=== PATIENT | male | born 1965 | race Caucasian/White ===

== ENCOUNTER 2018-12-07 06:56 | Emergency (ER) | payer OTHER ==
[~2018-12-07] VITALS: Ht 170.2 cm; Wt 85.5 kg
[2018-12-07 07:01] VITALS: Ht 170.2 cm; Wt 85.5 kg
[2018-12-07] MEDS ORDERED: SOD CHLORIDE 0.9% 500 ML IV ONE (09:00)
[2018-12-07] MEDS ORDERED: DIPHENHYDRAMINE 50 MG INJ IV ONE (09:00)
[2018-12-07] MEDS ORDERED: METOCLOPRAMIDE 10 MG INJ IV ONE (09:00)
[2018-12-07] MEDS ORDERED: KETOROLAC 15 MG INJ IV STA (09:00)
--- NOTE | 2018-12-07 09:09 | ERD ---
ER Documentation Chief Complaint Chief Complaint DIZZINESS SINCA AM, BLOOD PRESSURE HIGH DOESN'T TAKE MEDICATIONS HPI This is a 53-year-old male with no reported past medical history who is presenting for a headache and high blood pressure. The patient endorses a slow onset progressive worsening throbbing left-sided headache with mild photophobia but no phonophobia, no nausea or vomiting, beginning last night. The patient felt generally weak and lightheaded this morning, which was felt to be related to having not eaten yet. However, the patient had his blood pressure checked and was found to be elevated. The patient presents to the emergency department for this. This is not the worst headache of the patient's life. He does not endorse a personal or family history of cerebral aneurysm. He does not endorse any neck stiffness or pain. He has no focal deficits. He does not endorse any blurry or double vision. He does not endorse dizziness. The room is not spinning around him. He has no weakness or numbness or tingling to the face or extremities. He has no coordination issues. The patient denies feeling sick recently. The patient denies fever or chills. The patient does not endorse back pain. The patient has had no chest pain or trouble breathing. The patient denies abdominal pain. The patient denies changes to bowel movements or urination. The patient has had no focal deficits. ROS All systems reviewed and are negative except as per history of present illness. Allergies Allergies: Coded Allergies: No Known Allergy (Unverified , 12/07/18) PMhx/Soc Medical and Surgical Hx: pt denies Medical Hx, pt denies Surgical Hx History of Surgery: No Anesthesia Reaction: No Hx Neurological Disorder: No Hx Respiratory Disorders: No Hx Cardiac Disorders: No Hx Psychiatric Problems: No Hx Miscellaneous Medical Probl: No Hx Alcohol Use: Yes (weekends) Hx Substance Use: No Hx Tobacco Use: No Smoking Status: Never smoker FmHx Family History: No diabetes Physical Exam Vitals Vital Signs Date Temp Pulse Resp B/P (MAP) Pulse Ox O2 O2 Flow FiO2 Time Delivery Rate 12/07/18 49 12 188/104 100 Room Air 08:42 (132) 12/07/18 98.2 74 18 194/123 98 07:01 (146) Physical Exam Const: No apparent distress, well-developed, well-nourished Head: Normocephalic, Atraumatic Eyes: Normal Conjunctiva. Extraocular movements intact. Pupils equal, round and reactive to light ENT: Normal External Ears, Nose and Mouth. Neck: Full range of motion. No meningismus. Resp: Clear to auscultation bilaterally, No wheezes, rales or rhonchi Cardio: Regular rate and rhythm. No murmurs, rubs or gallops Abd: Soft, non tender, non distended. Normal bowel sounds Skin: No petechiae or rashes Back: No midline tenderness. No CVA tenderness Ext: No cyanosis, or edema Neur: Awake and alert, oriented 4. Cranial nerves intact. No facial droop. Normal strength, sensation and coordination. Psych: Normal Mood and Affect Results 24 hrs Current Medications Medications Dose Sig/Grant Start Time Status Last (Trade) Ordered Route PRN Stop Time Admin Dose Reason Admin Sodium 500 ml @ Q1H ONCE 12/07/18 12/07/18 Chloride 500 mls/hr IV 09:00 09:20 12/07/18 09:59 Ketorolac 15 mg ONCE STAT 12/07/18 DC 12/07/18 Tromethamine IV 09:00 09:20 (Toradol) 12/07/18 09:01 10 mg ONCE ONCE 12/07/18 DC 12/07/18 Metoclopramid IV 09:00 09:21 e HCl 12/07/18 09:01 (Reglan) 25 mg ONCE ONCE 12/07/18 DC 12/07/18 Diphenhydrami IV 09:00 09:20 ne HCl 12/07/18 09:01 (Benadryl) Procedures/MDM MDM The patient's presentation warrants further investigation. Previous medical records, if available, were reviewed. EKG EKG read by me: Rate/Rhythm: Sinus bradycardia at 54 bpm Intervals: Normal [place]: Normal Impression: No evidence of acute ischemia. Sinus bradycardia. TREATMENT/DISPOSITION The patient presents with a headache. The patient was treated with IV fluids, Toradol, Reglan and Benadryl with improvement of his headache. Differential diagnosis also includes migraine, tension headache, cluster headache. The patient has no focal deficits. The neurologic exam is reassuring. I have decreased suspicion for cerebral ischemia. There was no trauma or injury. There is no personal or family history of cerebral aneurysm. This is not the worst headache of the patient's life. It was not acutely severe. It is been progressive in nature. I have decreased suspicion for SAH or other ICH. I have low suspicion for temporal arteritis, cavernous venous thrombosis, subdural hematoma, epidural hematoma, meningitis. The patient's headache could be related to undiagnosed high blood pressure. The patient's blood pressure was elevated at greater than 120/80 while in the emergency department. As the patient's headache improved, patient's blood pressure also improved. The patient's blood pressure is not at emergent levels. The patient was otherwise stable with no evidence of hypertensive urgency or emergency. The patient's EKG reveals mild tachycardia, but it is otherwise unremarkable. There is no evidence of cardiac ischemia. The patient does not require admission for blood pressure control. I have discussed with the patient the risks of hypertension. I have instructed the patient to return to the ER for any new or worsening symptoms including chest pain, shortness of breath, headache, blurred vision, confusion, nausea, vomiting or LOC. I have advised the patient to follow up with the primary care physician for outpatient monitoring and treatment for hypertension in 1-3 days. DISCHARGE Upon reevaluation of the patient, symptoms have improved. No emergent diagnoses were identified. At this time, I feel that the patient stable for discharge. The patient was instructed to follow-up with a primary care physician in 1-3 days. The patient will be given strict precautions with which to return to the emergency department. Prescriptions: None DISCLAIMER Inadvertent spelling and grammatical errors are likely due to EHR/dictation software use and do not reflect on the overall quality of patient care. Note that the electronic time recorded on this note does not necessarily reflect the actual time of the patient encounter. Departure Diagnosis: Primary Impression: Headache Headache type: unspecified Headache chronicity pattern: acute headache Intractability: not intractable Qualified Codes: R51 - Headache Additional Impressions: Lightheadedness Elevated blood pressure reading Condition: Stable Patient Instructions: Hypertension, To Be Confirmed, Self-Care for Headaches Additional Instructions: Thank you for for coming to [facility] for your care today. Please ask your nurse or provider if you have questions about your care today and do not leave until all your questions have been answered. Please use any medications given as directed and follow-up with your doctor (or the doctor you were referred to) in the next 1-3 days. If you do not have a primary care doctor you may follow up at [place] [facility] (listed below). You may also use motrin and tylenol as needed for fever and/or pain unless instructed otherwise by your provider or nurse. Indications for more urgent follow-up have been discussed, but you may return to the Emergency Department at ANY time for any worrisome or worsening symptoms. If you have abdominal pain, please know that no test or exam you received is perfect and you should follow up within 8 hours for continued pain. If you had any imaging studies today, such as an X-Ray or CT Scan, these studies will be reviewed later by a radiologist. You will be called if there are i mportant findings that were not identified today, so make sure the contact information you provided at registration is correct. If you received any narcotic pain control medicine today, such as Vicodin, Morphine or Dilaudid, your coordination and judgment may be affected for a number of hours. Please do not drive or operate heavy machinery, and you may want someone to assist you at home. If you were given a prescription for narcotic medication, be aware that it is very addictive- use sparingly and only if necessary. PLEASE SEEK FURTHER EVALUATION AND MANAGEMENT AT YOUR DOCTORS OFFICE WITHIN THE NEXT 1-3 DAYS. IT IS YOUR RESPONSIBILITY TO MAKE AN APPOINTMENT FOR FOLOW-UP CARE. IF YOU HAVE A PRIMARY DOCTOR, PLEASE CALL THEIR OFFICE TO SCHEDULE AN APPOINTMEN T FOR FOLLOW UP. IF YOU DO NOT HAVE A PRIMARY DOCTOR YOU CAN CALL OUR PHYSICIAN REFERRAL HOTLINE AT IF YOU CAN NOT AFFORD TO SEE A PHYSICIAN YOU CAN CHOSE FROM THE FOLLOWING [facility] OR [facility] CLINICS: [facility] [address] [facility] [address] [facility]. [facility] [address] [facility] [address] [facility] [address] [facility] [facility] [facility] [address] [place] [address] [facility] [address] [place] [address] [facility] + [facility] [address] [place] [address] LINDA GARCIA MD Dec 07, 2018 09:09
[2018-12-07 10:34] VITALS: BP 144/96; PULSE 47; RESP 17
== END 2018-12-07 10:35 | disposition home or self-care (01) ==
LOC: E/R 06:56
DX: R42 Dizziness and giddiness (principal); R51 Headache; R03.0 Elevated blood-pressure reading, without diagnosis of hypertension
CPT/HCPCS: 96374; 96375; J1200; J2765; J7040; Z7502; 93005